=== PATIENT | female | born 1980 | race Caucasian/White ===

== ENCOUNTER 2018-05-18 11:45 | Inpatient (IN) | payer MEDICAID ==
[~2018-05-18] VITALS: Ht 162.6 cm; Wt 77.6 kg
[2018-05-18 13:01] LABS: BASOPHILS % 0.4 % (0.0-2.0); EOSINOPHILS % 1.1 % (0.0-5.0); HEMATOCRIT. 38.5 % (36.0-48.0); HEMOGLOBIN. 13.1 g/dL (12.0-16.0); LYMPHOCYTES % 31.6 % (20.0-50.0); MEAN CORPUSCULAR HEMOGLOBIN 29.3 pg (28.0-32.0); MEAN CORPUSCULAR VOLUME 86.5 fL (81.0-99.0); MEAN PLATELET VOLUME 8.5 fl (7.4-10.4); MONOCYTES % 8.3 % (2.0-8.0); NEUTROPHILS % 58.6 % (40.0-76.0); PLATELET 239 x1000/uL (130-400); RED BLOOD CELL COUNT 4.45 mill/uL (4.2-5.4); RED CELL DISTRIBUTION WIDTH 12.9 % (11.6-14.6)
[2018-05-18 13:07] LABS: CHLORIDE 107 mEq/L (98-107)
[2018-05-18 13:09] LABS: INR 1.1; PARTIAL THROMBOPLASTIN TIME 28.1 sec (23.4-31.0); PROTHROMBIN TIME 10.7 sec (9.1-11.1)
[2018-05-18 13:19] LABS: HCG SCREEN NEGATIVE
[2018-05-18] MEDS ORDERED: ASPIRIN 325MG EC TABLET PO ONE (14:45)
[2018-05-18 18:46] VITALS: BP 136/81
[2018-05-18 19:45] VITALS: BP 148/91
[2018-05-18 20:00] VITALS: BP 148/91
[2018-05-18] MEDS ORDERED: HYDROCODONE/ACETAMINOPHEN 5/325MG TABLET PO PRN (21:00)
[2018-05-18] MEDS: GABAPENTIN 100MG CAPSULE PO SCH (22:00)
[2018-05-19] VITALS: BP 115/63
[2018-05-19 04:00] VITALS: BP 148/74
[2018-05-19 07:15] LABS: BASOPHILS % 0.5 % (0.0-2.0); EOSINOPHILS % 1.1 % (0.0-5.0); HEMATOCRIT. 42.4 % (36.0-48.0); HEMOGLOBIN. 14.3 g/dL (12.0-16.0); LYMPHOCYTES % 26.4 % (20.0-50.0); MEAN CORPUSCULAR HEMOGLOBIN 29.5 pg (28.0-32.0); MEAN CORPUSCULAR VOLUME 87.1 fL (81.0-99.0); MEAN PLATELET VOLUME 8.8 fl (7.4-10.4); MONOCYTES % 7.3 % (2.0-8.0); NEUTROPHILS % 64.7 % (40.0-76.0); PLATELET 257 x1000/uL (130-400); RED BLOOD CELL COUNT 4.87 mill/uL (4.2-5.4); RED CELL DISTRIBUTION WIDTH 12.6 % (11.6-14.6)
[2018-05-19] MEDS: GABAPENTIN 100MG CAPSULE PO SCH ×2 (07:32→13:08)
[2018-05-19 07:39] LABS: T4 FREE 1.16 ng/dL (0.76-1.46)
[2018-05-19 08:00] VITALS: BP 142/97
[2018-05-19 12:00] VITALS: BP 126/74
[2018-05-19 16:00] VITALS: BP 143/79
[2018-05-19 17:17] VITALS: BP 143/79
== END 2018-05-19 17:40 | disposition home or self-care (01) | DRG 347 ==
LOC: ER 11:45 → 5WST 14:36 → EDBEDREQTM 14:39 → EDBEDREQ 14:39 → ENRESERV 17:24
PROVIDERS: ADMIT Internal Medicine; ATTEND Internal Medicine
DX: M47.22 Other spondylosis with radiculopathy, cervical region (principal); I10 Essential (primary) hypertension; R29.701 NIHSS score 1; R55 Syncope and collapse; Z98.891 History of uterine scar from previous surgery; Z79.899 Other long term (current) drug therapy
CPT/HCPCS: 36415; 70450; 70551; 71045; 72125; 72141; 80053; 80061; 83735; 83880; 84439; 84443; 84484; 84703; 85025; 85610; 85730; 93005; 97162; 99285

== ENCOUNTER 2022-09-13 16:01 | Emergency (ER) | payer MEDICAID ==
[~2022-09-13] VITALS: Ht 162.6 cm; Wt 80.0 kg
[~2022-09-13 16:01] MED LIST: ALBU90AE INH; PROT40 MT
[2022-09-13 16:13] VITALS: BP 169/109
[2022-09-13] MEDS ORDERED: MECLIZINE 25MG TABLET PO ONE (23:00)
[2022-09-13] MEDS ORDERED: FAMOTIDINE 20MG/2ML VIAL IV ONE (23:00)
[2022-09-13] MEDS ORDERED: MAGNESIUM/ALUMINUM HYDROXIDE/SIMETHICONE 30ML UDC PO ONE (23:00)
[2022-09-13] MEDS ORDERED: ONDANSETRON HCL 4MG/2ML INJ IV ONE (23:00)
[2022-09-13 23:28] LABS: BASOPHILS % 0.2 % (0.0-2.0); HEMATOCRIT. 42.9 % (36.0-48.0); HEMOGLOBIN. 14.4 g/dL (12.0-16.0); LYMPHOCYTES % 8.7 % (20.0-50.0); MEAN CORPUSCULAR HEMOGLOBIN 28.6 pg (28.0-32.0); MEAN CORPUSCULAR VOLUME 85.1 fL (81.0-99.0); MEAN PLATELET VOLUME 8.1 fl (7.4-10.4); MONOCYTES % 1.9 % (2.0-8.0); NEUTROPHILS % 89.2 % (40.0-76.0); PLATELET 303 x1000/uL (130-400); RED BLOOD CELL COUNT 5.04 mill/uL (4.2-5.4); RED CELL DISTRIBUTION WIDTH 13.2 % (11.6-14.6)
[2022-09-13 23:30] LABS: CHLORIDE 106 mEq/L (98-107)
[2022-09-13 23:36] LABS: INR 1.1; PROTHROMBIN TIME 11.4 sec (9.6-11.0)
[2022-09-14] MEDS ORDERED: MECLIZINE 25MG TABLET PO NR (04:45)
[2022-09-14] MEDS ORDERED: ONDANSETRON HCL 4MG/2ML INJ IV NR (04:45)
[2022-09-14] MEDS ORDERED: MAGNESIUM/ALUMINUM HYDROXIDE/SIMETHICONE 30ML UDC PO NR (04:45)
[2022-09-14] MEDS ORDERED: FAMOTIDINE 20MG/2ML VIAL IV NR (04:45)
[2022-09-14] MEDS ORDERED: SODIUM CHLORIDE 0.9% 1,000 ML IV ONE (05:15)
[2022-09-14] MEDS ORDERED: MECL-159 MT (06:08)
[2022-09-14] MEDS ORDERED: ONDA4TAB11 PO (06:08)
== END 2022-09-15 08:54 | disposition home or self-care (01) ==
LOC: ER 16:01
DX: R42 Dizziness and giddiness (principal); I10 Essential (primary) hypertension
CPT/HCPCS: 36415; 70450; 80053; 83690; 84484; 85025; 85610; 96361; 96374; 96375; 99285; J2405; J3490; J7030; J8597